=== PATIENT | female | born 1995 | race Caucasian/White ===

== ENCOUNTER 2020-06-01 16:17 | Emergency (ER) | payer OTHER, SELFPAY ==
[2020-06-01 16:20] VITALS: BP 142/72; PULSE 97; RESP 18; TEMP 36.6; O2SAT 99; BMI 26.5
--- NOTE | 2020-06-01 16:30 | CT_ITS ---
STUDY: CT BRAIN WITHOUT CONTRAST REASON FOR EXAM: Female, 24 years old. Headache/migraine RADIATION DOSAGE (If Supplied By Facility): CTDIvol = ( 44.99 ) mGy, DLP = ( 694.87 ) mGycm TECHNIQUE: Transaxial CT imaging of the brain was performed without administration of intravenous contrast material. Individualized dose optimization techniques were used for this CT. COMPARISON: None. FINDINGS: Normal soft tissue structures. Normal calvarium. No hydrocephalus. Normal size ventricles and extra-axial spaces for the patient''s age. Normal white matter tracts of the cerebral hemispheres. Normal basal ganglia and thalami. Normal brainstem. Normal cerebellum. There is no intracranial hemorrhage. There are no findings of an acute ischemic infarction. Normal visualized paranasal sinuses. CT/Brain/Head without Contrast IMPRESSION: No demonstrated acute or significant cranial process. Electronically Signed: Deric Small MD at 17:15 EDT , Service support ,
--- NOTE | 2020-06-01 16:31 | ED.VIS.GEN ---
History of Present Illness Chief Complaint: Headache Informant: Patient Onset: Yesterday Context: Gradual Onset Timing: Continuous Current Severity: Moderate Maximum Severity: Moderate Narrative: Patient is a 24-year-old female who presents to the emergency department migraine headache. She states that she has had similar headaches in the past, but they usually only come every 6 months. She states she had 1 2 weeks ago, and then it started again yesterday. It was gradual in onset. She states that aside from the duration, feels like her normal headaches. She has been nauseated without vomiting. She also admits to photophobia and phonophobia. She denies fevers or chills. She denies neck pain or weakness. Prior similar symptoms: Yes Recent Illness/Hospitalization: No Past Medical History - Allergies and Home Meds Allergies/Adverse Reactions: Allergies No Known Allergies Allergy (Verified 06/01/20 16:23) Primary Care Physician: Lilian Taylor MD [Primary Care Provider] - Prior records reviewed: Yes Past Medical History: - - Migraine headache Surgical History: noncontributory Review of Systems General: Denies: Chills, Fever, Sweats Eyes: Denies: Visual changes - bilaterally, Diplopia ENT: Denies: Rhinorrhea, Sore throat Cardiovascular: Denies: Chest pain, Palpitations Respiratory: Denies: Dyspnea, Cough, Dyspnea on exertion Gastrointestinal: Reports: Nausea. Denies: Abdominal pain, Vomiting, Diarrhea, Melena, Hematochezia Genitourinary: Denies: Dysuria, Hematuria, Frequency Musculoskeletal: Denies: Back pain, Extremity Pain Skin: Denies: Rash, Wounds Neurological: Reports: Headache. Denies: Weakness, Numbness Physical Exam Vital Signs/Narrative: Vital Signs Temp Pulse Resp BP Pulse Ox 06/01/20 16:20 98 F 97 18 142/72 H 99 Inital Vital Signs reviewed: Yes General: Well nourished, Well developed, No Acute Distress Head: Normocephalic, Atraumatic Eyes: Perrl, EOMI ENT: Moist mucous membranes, No rhinorrhea Neck: Supple, Nontender Cardiovascular: Regular rate, Regular rhythm, No murmurs Respiratory: No distress, CTA bilaterally, Chest nontender Abdomen: Soft, Nontender, Nondistended, Normal bowel sounds Back: Nontender, Normal Inspection Extremities: Nontender, No edema Skin: Normal color, No rash Neurological: Alert, Oriented x3, Cranial nerves II-XII grossly intact, Normal Strength, Normal Sensation Psychological: Normal affect, Normal Mood Diagnostic/Tx/Re-eval Clinical Impression(s) from Imaging Studies Brain CT 06/01/20 16:30 IMPRESSION: No demonstrated acute or significant cranial process. Electronically Signed: Deric Small MD at 17:15 EDT , Service support , - Medical Decision Making The patient presents with worsening headache. She does have reported history of migraines, but is never been formally diagnosed. With the progression of her headache and lack of other risk factors, I did obtain noncontrast head CT. This was negative for acute process. With migraine abortive medications, she is feeling markedly improved. She is not meningitic or encephalopathic. She is very well-appearing. I do feel that she is safe for outpatient therapy. She is comfortable with this plan of care. Impression 1. Migraine headache ED Disposition - Plan for ED Patient: Instructions: ED, Migraine (Classical) Prescriptions: Ondansetron [Zofran Odt] 4 mg PO Q8H PRN PRN #10 tab PRN Reason: Nausea Prescription Printed Referrals: Lilian Taylor MD [Primary Care Provider] -
[2020-06-01] MEDS: Ketorolac 15 MG/ML Vial IV (16:50)
[2020-06-01] MEDS: DiphenhydrAMINE 50 MG/ML Syringe IV (16:51)
[2020-06-01] MEDS: 0.9% Normal Saline 1,000 ML 999 ML IV (16:56)
[2020-06-01] MEDS: proCHLORPERazine 10 MG/2 ML Vial IV (16:56)
== END 2020-06-01 18:06 | disposition home or self-care (01) ==
PROVIDERS: Emergency Provider Emergency Medicine; PCP Internal Medicine
DX: G43.909 Migraine, unspecified, not intractable, without status migrainosus (principal)
CPT/HCPCS: 70450; 96361; 96374; 96375; 99283; J7030; A4216

== ENCOUNTER 2020-06-06 11:59 | Emergency (ER) | payer OTHER, SELFPAY ==
[2020-06-06 12:00] VITALS: BP 128/88; PULSE 105; RESP 16; TEMP 36.4; O2SAT 100; BMI 26.5
--- NOTE | 2020-06-06 12:12 | ED.DCSUM_ITS ---
History of Present Illness Chief Complaint: Sore Throat Informant: Patient Onset: Days Context: Gradual Onset Timing: Continuous Current Severity: Moderate Maximum Severity: Moderate Narrative: The patient is an otherwise healthy 25-year-old female presents to the emergency department sore throat. She states it began about 2 days ago. She is felt like she is had low-grade fevers. She does describe pain with swallowing but is still able to drink. She denies any neck pain. She denies any chest pain or shortness of breath. She does have a history of strep and states this feels similar. Prior similar symptoms: No Recent Illness/Hospitalization: No Past Medical History - Allergies and Home Meds Allergies/Adverse Reactions: Allergies No Known Allergies Allergy (Verified 06/06/20 12:00) Primary Care Physician: Lilian Taylor MD [Primary Care Provider] - Prior records reviewed: Yes Past Medical History: None Surgical History: noncontributory Smoking Status: Never smoker Review of Systems General: Denies: Chills, Fever, Sweats Eyes: Denies: Visual changes - bilaterally, Diplopia ENT: Reports: Sore throat. Denies: Rhinorrhea Cardiovascular: Denies: Chest pain, Palpitations Respiratory: Denies: Dyspnea, Cough, Dyspnea on exertion Gastrointestinal: Denies: Abdominal pain, Nausea, Vomiting, Diarrhea, Melena, Hematochezia Genitourinary: Denies: Dysuria, Hematuria, Frequency Musculoskeletal: Denies: Back pain, Extremity Pain Skin: Denies: Rash, Wounds Neurological: Denies: Headache, Weakness, Numbness Physical Exam Vital Signs/Narrative: Vital Signs Temp Pulse Resp BP Pulse Ox 06/06/20 12:00 97.6 F L 105 H 16 128/88 H 100 Inital Vital Signs reviewed: Yes General: Well nourished, Well developed, No Acute Distress Head: Normocephalic, Atraumatic Eyes: Perrl, EOMI ENT: Moist mucous membranes, No rhinorrhea, - - Posterior oropharynx is widely patent. There is exudates on bilateral tonsillar pillars. Uvula midline. No evidence of retropharyngeal or peritonsillar abscess. Neck: Supple, Nontender Cardiovascular: Regular rate, Regular rhythm, No murmurs Respiratory: No distress, CTA bilaterally, Chest nontender Abdomen: Soft, Nontender, Nondistended, Normal bowel sounds Back: Nontender, Normal Inspection Extremities: Nontender, No edema Skin: Normal color, No rash Neurological: Alert, Oriented x3, Cranial nerves II-XII grossly intact, Normal Strength, Normal Sensation Psychological: Normal affect, Normal Mood Diagnostic/Tx/Re-eval - Medical Decision Making Patient presents with exudative pharyngitis consistent with strep. There was no evidence of abscess. She has no trismus or stridor. She is very well- appearing. Patient is given dose of oral Decadron. She will be started on Augmentin. She was counseled on concerning symptoms and reasons to return. She will be discharged. Impression 1. Strep pharyngitis ED Disposition - Plan for ED Patient: Instructions: ED Pharyngitis Strep Confirmed Prescriptions: Amox/Clav 400mg/5ml Suspension [Augmentin Suspension 400mg/5ml] 10 ml PO Q12H #150 ml Prescription Printed Referrals: Lilian Taylor MD [Primary Care Provider] -
[2020-06-06 12:22] VITALS: RESP 16
[2020-06-06] MEDS: dexAMETHasone 10 MG/ML Vial PO.IVFORM (12:35)
== END 2020-06-06 12:35 | disposition home or self-care (01) ==
LOC: ED 12:26
PROVIDERS: Emergency Provider Emergency Medicine; PCP Internal Medicine
DX: J02.0 Streptococcal pharyngitis (principal)
CPT/HCPCS: 99283

== ENCOUNTER 2020-06-09 11:58 | Emergency (ER) | payer OTHER, SELFPAY ==
[2020-06-09 12:00] VITALS: BP 146/68; PULSE 95; RESP 18; TEMP 36.3; O2SAT 100; BMI 27.0
[2020-06-09 12:03] VITALS: BP 146/68; PULSE 95; RESP 18; TEMP 36.3; O2SAT 100
--- NOTE | 2020-06-09 12:51 | CT_ITS ---
STUDY: CT SOFT TISSUE NECK WITHOUT CONTRAST REASON FOR EXAM: Female, 25 years old. Headache x 1 week, posterior neck swelling -- PT REFUSED IV CONTRAST RADIATION DOSAGE (If Supplied By Facility): CTDIvol = ( 13.51 ) mGy, DLP = ( 332.18 ) mGycm TECHNIQUE: The patient was scanned in a multi-detector CT scanner. High resolution transaxial imaging was performed without the administration of intravenous contrast material. Sagittal and coronal images were reconstructed. Individualized dose optimization techniques were used for this CT. COMPARISON: None. FINDINGS: Normal bilateral parotid glands. Normal bilateral water carter spaces. Normal bilateral parapharyngeal spaces. Normal bilateral carotid spaces. Normal bilateral sublingual and submandibular glands and spaces. Normal visualized nasopharynx. Normal retropharyngeal space. Normal perivertebral space. Normal visualized bilateral faucial tonsils. The visualized tongue, tongue base and oropharynx are normal. There are minimally enlarged lymph nodes of the neck, with preservation of normal dylon architecture, consistent with a reactive lymph hyperplasia. There is no demonstrated solid or cystic mass lesion. Normal epiglottis, bilateral vallecula and hypopharynx. The pre-epiglottic and paraglottic adipose spaces are normal. Normal visualized bilateral piriform sinuses, aryepiglottic folds, vocal cords, and arytenoid-cricoid articulations. Normal subglottic trachea. Normal bilateral lobes of the thyroid gland. Normal visualized pulmonary apices. Normal visualized paranasal sinuses. Normal visualized cervical spine. CT/Soft Tissue Neck without Contr IMPRESSION: Normal unenhanced CT examination of the soft tissues of the neck. Electronically Signed: Tod Nguyen, at 14:27 EDT , Service support ,
--- NOTE | 2020-06-09 12:52 | ED.VIS.GEN ---
History of Present Illness Chief Complaint: Headache Informant: Patient, Family Narrative: Patient presents the emergency department for the third time in 8 days. First visit was for a headache returning several days later was diagnosed with an exudative pharyngitis and placed on Augmentin. She states she has basically been doing bedrest. She is now complaining of pain around the C7 spinous process and mom states that it is swollen/puffy. No fevers. She vomited this morning. She notes the pain radiates from the neck up towards her head. It is worse with movement. She denies any paresthesias. No rash. She attempted to follow-up with primary care but they had no openings today and were told to come back to emergency. Past Medical History - Allergies and Home Meds Allergies/Adverse Reactions: Allergies No Known Allergies Allergy (Verified 06/09/20 12:03) Primary Care Physician: Lilian Taylor MD [Primary Care Provider] - As soon as possible Prior records reviewed: Yes Past Medical History: None Surgical History: noncontributory Smoking Status: Never smoker Drugs: None Review of Systems General: Reports: Malaise. Denies: Chills, Fever, Sweats Eyes: Denies: Visual changes - bilaterally, Diplopia ENT: Reports: Sore throat. Denies: Rhinorrhea Cardiovascular: Denies: Chest pain, Palpitations Respiratory: Denies: Dyspnea, Cough, Dyspnea on exertion Gastrointestinal: Reports: Nausea, Vomiting. Denies: Abdominal pain, Diarrhea, Melena, Hematochezia Genitourinary: Denies: Dysuria, Hematuria, Frequency Musculoskeletal: Reports: Neck pain. Denies: Back pain, Extremity Pain Skin: Denies: Rash, Wounds Neurological: Reports: Headache. Denies: Weakness, Numbness Physical Exam Vital Signs/Narrative: Vital Signs Temp Pulse Resp BP Pulse Ox 06/09/20 12:03 97.4 F L 95 18 146/68 H 100 06/09/20 12:00 97.4 F L 95 18 146/68 H 100 Inital Vital Signs reviewed: Yes General: Well nourished, Well developed, No Acute Distress Head: Normocephalic, Atraumatic Eyes: Perrl, EOMI ENT: Moist mucous membranes, No rhinorrhea Neck: Supple, - - Complains of diffuse tenderness to palpation over the paraspinal cervical musculature. I do not appreciate any swelling fluctuance or erythema around the C7 spinous process where the family notes there is swelling. Negative Kernig's or Brudzinski's. No significant photophobia. Negative for: No lymphadenopathy - There are few small scattered anterior lymph nodes that are palpable Cardiovascular: Regular rate, Regular rhythm, No murmurs Respiratory: No distress, CTA bilaterally, Chest nontender Abdomen: Soft, Nontender, Nondistended, Normal bowel sounds Back: Nontender, Normal Inspection Extremities: Nontender, No edema Skin: Normal color, No rash Neurological: Alert, Oriented x3, Cranial nerves II-XII grossly intact, Normal Strength, Normal Sensation Psychological: Normal affect, Normal Mood Diagnostic/Tx/Re-eval Laboratory Last Values WBC 14.1 K/mm3 (4.4-11.0) H 06/09/20 13:00 RBC 5.03 M/mm3 (4.2-5.4) 06/09/20 13:00 Hgb 13.7 g/dL (12.0-15.0) 06/09/20 13:00 Hct 42.3 % (37-47) 06/09/20 13:00 MCV 84.1 fL (81-99) 06/09/20 13:00 MCH 27.2 pg (27.0-32.0) 06/09/20 13:00 MCHC 32.4 g/dL (32-36) 06/09/20 13:00 RDW Std Deviation 40.4 fl (35.1-43.9) 06/09/20 13:00 RDW Coeff of Alicia 13.2 % (11.6-14.6) 06/09/20 13:00 Plt Count 385 K/mm3 (150-450) 06/09/20 13:00 MPV 10.4 fl (6.2-12.0) 06/09/20 13:00 Immature Gran % (Auto) 1.300 % (0.0-0.9) H 06/09/20 13:00 Neut % (Auto) 85.3 % (47-70) H 06/09/20 13:00 Lymph % (Auto) 7.1 % (19-41) L 06/09/20 13:00 [place] % (Auto) 5.6 % (0-10) 06/09/20 13:00 Eos % (Auto) 0.1 % (0-5) 06/09/20 13:00 Baso % (Auto) 0.6 % (0-1) 06/09/20 13:00 Absolute Neuts (auto) 12.1 X10^3/uL (2.0-7.7) H 06/09/20 13:00 Absolute Lymphs (auto) 1.00 X10^3/uL (0.83-4.51) 06/09/20 13:00 Nucleated RBC % 0 % (0-5) 06/09/20 13:00 Sodium 135 mmol/L (136-145) L 06/09/20 13:00 Potassium 3.9 mmol/L (3.5-5.1) 06/09/20 13:00 Chloride 104 mmol/L (98-107) 06/09/20 13:00 Carbon Dioxide 28.0 mmol/L (21.0-32.0) 06/09/20 13:00 Anion Gap 3 (5-15) L 06/09/20 13:00 BUN 9 mg/dL (7-18) 06/09/20 13:00 Creatinine 0.76 mg/dL (0.55-1.02) 06/09/20 13:00 Estim Creat Clear Calc 94.42 ml/min 06/09/20 13:00 Est GFR (MDRD) Af Amer 120 mL/min (>60) 06/09/20 13:00 Est GFR (MDRD) Non-Af 99 mL/min (>60) 06/09/20 13:00 BUN/Creatinine Ratio 11.8 RATIO (10-20) 06/09/20 13:00 Glucose 108 mg/dL (74-106) H 06/09/20 13:00 Calcium 8.8 mg/dL (8.5-10.1) 06/09/20 13:00 Serum , Qual NEGATIVE Negative 06/09/20 13:00 - Medical Decision Making Patient's vital signs appear stable and she clinically appears stable. The exudative pharyngitis appears to be improving clinically. She does not have any meningitic signs. CT does not demonstrate any reason for her C7 process area to be swollen. Certainly no abscess. There are some reactive lymph nodes in the neck. I do not suspect this to be mono as it is getting better on antibiotics. I think she most likely has a tension headache given the tenderness in the cervical muscles. At this point I think the risk of an LP would outweigh the benefits as she does not really have any hard signs of meningitis. ED Disposition - Plan for ED Patient: Disposition: Home or Assisted Living Diagnosis: Tension headache, Pharyngitis Prescriptions: cycloBENZAPRine HCl [Flexeril] 10 mg PO TID 5 Days #15 tab Prescription Printed Acetaminophen/Codeine Liquid [Tylenol W/Cod Liq 300-30MG/12.5ML] 12.5 ml PO Q4H PRN 3 Days #225 ml PRN Reason: pain Prescription Printed Referrals: Lilian Taylor MD [Primary Care Provider] - As soon as possible
[2020-06-09] MEDS: Ketorolac 30 MG/ML Syringe IV (12:57)
[2020-06-09 13:22] LABS: Absolute Neutrophil Count 12.1 X10^3/uL (2.0-7.7); Basophil# 0.08 X10^3/uL; Basophil% 0.6 % (0-1); Eosinophil# 0.01 X10^3/uL; Eosinophils% 0.1 % (0-5); Hematocrit 42.3 % (37-47); Hemoglobin 13.7 g/dL (12.0-15.0); Lymphocyte % 7.1 % (19-41); Mean Corp Hgb Conc 32.4 g/dL (32-36); Mean Corpuscular Hgb 27.2 pg (27.0-32.0); Mean Corpuscular Volume 84.1 fL (81-99); Mean Platelet Vol. 10.4 fl (6.2-12.0); Monocyte# 0.79 X10^3/uL; Monocyte% 5.6 % (0-10); NRBC Flagged by Analyzer 0 % (0-5); Neutrophil # 12.05 X10^3/uL (2.7-7.7); Neutrophil % 85.3 % (47-70); Platelet Count 385 K/mm3 (150-450); RBC Distribution Width CV 13.2 % (11.6-14.6); RBC Distribution Width SD 40.4 fl (35.1-43.9); Red Blood Count 5.03 M/mm3 (4.2-5.4); White Blood Count 14.1 K/mm3 (4.4-11.0)
[2020-06-09 13:29] LABS: Anion Gap 3 (5-15); BUN 9 mg/dL (7-18); BUN/Creat Ratio 11.8 RATIO (10-20); Calcium,Total 8.8 mg/dL (8.5-10.1); Chloride 104 mmol/L (98-107); Creatinine, Serum 0.76 mg/dL (0.55-1.02); EST Glomerular Filtration Rate 99 mL/min (>60); Est Glom Filt Rate - Afr Amer 120 mL/min (>60); Estimated Creatinine Clearance 94.42 ml/min; Glucose 108 mg/dL (74-106); Potassium 3.9 mmol/L (3.5-5.1); Sodium Level 135 mmol/L (136-145)
[2020-06-09 13:47] LABS: Internal QC Validated? YES +Cl - CLEAR BKGD; Pregnancy, Serum, hCG Quali. NEGATIVE Negative
[2020-06-09 14:33] VITALS: BP 135/90; PULSE 97; RESP 18; O2SAT 99
[2020-06-09] MEDS: dexAMETHasone 10 MG/ML Vial IV (15:18)
[2020-06-09 15:21] VITALS: BP 133/96; RESP 15
== END 2020-06-09 15:27 | disposition home or self-care (01) ==
PROVIDERS: Emergency Provider Emergency Medicine; PCP Internal Medicine
DX: G44.209 Tension-type headache, unspecified, not intractable (principal); J02.9 Acute pharyngitis, unspecified
CPT/HCPCS: 70490; 80048; 84703; 85025; 96374; 96375; 99283; A4216